=== PATIENT | female | born 1995 | race Caucasian/White ===

== ENCOUNTER 2025-04-03 08:31 | Inpatient (IN) | payer MEDICAID, SELFPAY ==
[2025-04-03] VITALS (28 sets, daily range): BP systolic 110–148; BP diastolic 45–94; PULSE 52–91; RESP 10–21; TEMP 36.3–36.7; O2SAT 96–98; BMI 39.2
--- NOTE | 2025-04-03 09:15 | PD.LDHP ---
Documentation for date of: 04/03/25 OB Labor/Induct. HPI History of Present Illness : 3 Para: 1 Term pregnancies: 1 pregnancies: 0 Living children: 1 History of Abortions: Spontaneous and Elective: 1 History of sections: No History of : No RADHA: 04/15/25 History of present illness: 29-year-old 3 para 1-0-1-1 intrauterine at 38 weeks and 2 days admitted for induction of labor for chronic hypertension on labetalol. Patient denies any leaking or bleeding. She reports occasional contractions. She reports normal movement. She denies any headache change in vision or right upper quadrant pain. US today shows Breech presenation. Comments: Past medical history: Chronic hypertension Past surgical history: D&C Allergies: No known drug allergies Medications: multivitamin 1 p.o. daily. Labetalol 100 mg 1 p.o. twice daily, aspirin 81 mg 1 p.o. daily History of Present Adequate Care: Yes Labs Labs: Positive: Rubella Titre, Negative: RPR, Hepatitis B, HIV, Chlamydia, Gonorrhea and Group Beta Strep and Unknown: Herpes Type 1, Herpes Type 2 and Covid-19 Review of Systems Review of Systems Narrative Review of Systems: Denies any chest pain palpitations cough fever shortness of breath or lower extremity pain. Past Medical History Surgical History SURGICAL: Negative Section Meds Home Medications and Allergies Home Medications ?Medication ?Instructions ?Recorded ?Confirmed ?Type prenat.vits,irene,flu-[id number] 1 tab PO QDAY 10/04/20 04/03/25 History hydrocodone 5 mg-acetaminophen 325 1 tab PO QID PRN Pain 08/15/21 08/15/21 History mg tablet aspirin 81 mg tablet,delayed 81 mg PO QDAY 04/03/25 04/03/25 History release labetalol 100 mg tablet 100 mg PO BID 04/03/25 04/03/25 History Allergies Allergy/AdvReac Type Severity Reaction Status Date / Time No Known Allergies Allergy Verified 04/03/25 09:14 OB Exam Routine HEENT Exam Comments: Within normal limits Routine Respiratory Exam Comments: Clear to auscultation bilaterally Routine Cardiovascular Exam Comments: Regular rate and rhythm Routine Abdominal Exam Comments: Gravid term size consistent with estimated weight 7.5 pounds Detailed Labor and Delivery Exam Comments: See RN notes Routine Extremities Exam Comments: Nontender or edema Routine Skin Exam Comments: No gross rashes or lesions Routine Neurological Exam Comments: No deficit OB Results Labs 04/03/25 09:00 04/03/25 09:00 Impressions Impression: IUP at 38 weeks and 2 days Chronic hypertension Breech Presenation Delivery Informed consent was obtained. The patient was made aware the risks, complications, alternatives and benefits of delivery and she agrees.
[2025-04-03 09:43] LABS: Basophils # (Auto) 0.0 Thou/mm3 (0.0-0.2); Basophils % (Auto) 0 % (0-2.5); Eosinophils # (Auto) 0.2 Thou/mm3 (0.0-0.5); Eosinophils % (Auto) 3 % (0-10); Hematocrit 34.0 % (36.0-46.0); Hemoglobin 11.5 g/dL (12.0-16.0); Immature Granulocytes Auto 0.03 Thou/mm3 (0.00-0.00); Lymphocytes # (Auto) 2.4 Thou/mm3 (1.0-4.8); Lymphocytes % (Auto) 28 % (10-50); Mean Corpuscular HGB Conc 33.8 g/dl (31.0-37.0); Mean Corpuscular Hemoglobin 26.1 pg (25.0-35.0); Mean Corpuscular Volume 77 fL (80-100); Monocytes # (Auto) 0.7 Thou/mm3 (0.0-0.8); Monocytes % (Auto) 8 % (0-12); Neutrophils # (Auto) 5.1 Thou/mm3 (1.8-7.7); Neutrophils % (Auto) 60 % (37-80); Nucleated Red Blood Cell # 0.00 Thou/mm3 (0.00-0.00); Nucleated Red Blood Cell % 0 /100 WBC (0); Platelet Count 197 Thou/mm3 (140-440); RDW Standard Deviation 40.3 fL (36.4-46.3); Red Blood Count 4.41 Miln/mm3 (4.00-5.20); White Blood Count 8.6 Thou/mm3 (3.6-11.0)
[2025-04-03 09:57] LABS: Collection Type, Urine Clean Catch
[2025-04-03 10:13] LABS: Syphilis Nonreactive (Nonreactive)
[2025-04-03 10:33] LABS: Creatinine,Random Urine 180 mg/dL (30-125); Protein Total, Random Urine 46 mg/dL (1-14)
--- NOTE | 2025-04-03 10:38 | XR_ITS ---
Examination: age limited TECHNIQUE: Limited transabdominal sonographic images pelvis April 03, 2025, 1128 hours INDICATIONS: Labor evaluation, and known weight FINDINGS: Viable intrauterine gestation breech presentation spine maternal left. Cardiac motion 135 BPM. Estimated weight 3301 g Estimated gestational age is 37 weeks 4 days IMPRESSION: Fibroids uterine gestation breech presentation
[2025-04-03 10:39] LABS: Bacteria,Urine 2+; Bilirubin,Urine Negative (Negative); Blood,Urine Negative (Negative); Clarity,Urine Turbid (Clear/Hazy); Color,Urine Yellow (Lt Yel-Yel); Glucose, Urine Negative (Negative); Ketones,Urine Negative (Negative); Leukocyte Esterase,Urine Negative (Negative); Nitrite,Urine Negative (Negative); PH,Urine 6.0 (5.0-7.0); Protein,Urine Trace (Neg - Trace); RBC,Urine 1 /hpf (0-3); Specific Gravity,Urine 1.023 (1.001-1.035); Squamous Epithelial Cell,Urine 32 /hpf (0-5); Urobilinogen,Urine 2.0 mg/dL (0.0-1.0); WBC,Urine 4 /hpf (0-5)
[2025-04-03] MEDS: RINGERS LACTATED 1000 ML 1,000 ML 100 ML IV ×2 (13:00→15:34)
[2025-04-03 13:17] LABS: Alanine Aminotransferase 19 U/L (10-49); Albumin, Serum 3.5 gm/dL (3.5-5.0); Albumin/Globulin Ratio 1.7 (1.2-2.2); Alkaline Phosphatase 166 U/L (46-116); Anion Gap 11 (7-16); Aspartate Amino Transferase 20 U/L (0-34); BUN/Creatinine Ratio 10 Ratio (12-20); Bilirubin,Total 0.3 mg/dL (0.3-1.2); Blood Urea Nitrogen 6 mg/dL (9-23); Calcium 9.3 mg/dL (8.3-10.6); Calcium (Corrected) 9.7 mg/dL (8.5-10.1); Carbon Dioxide 19.7 mMol/L (20.0-31.0); Chloride 110 mMol/L (98-107); Creatinine (Component) 0.6 mg/dL (0.6-1.3); Estimated Creatinine Clearance 145.1 mL/min (>60); Globulin 2.1 gm/dL (2.3-3.5); Glucose 120 mg/dL (74-106); Osmolality,Calculated 279 (275-295); Potassium 3.6 mMol/L (3.4-5.1); Sodium 141 mMol/L (136-145); Total Protein 5.6 gm/dL (5.7-8.2); eGFR > 60 See Note
[2025-04-03 13:26] LABS: Uric Acid 4.5 mg/dL (3.1-7.8)
[2025-04-03 13:39] LABS: Fibrinogen 419 mg/dL (175-375); INR 0.9 (0.9-1.3); Partial Thromboplastin Time 26.5 Seconds (22.0-36.0); Prothrombin Time 10.3 Seconds (9.0-12.2)
[2025-04-03] MEDS: METOCLOPRAMIDE INJ 5 MG/ML VIAL 2 ML 10 MG IVP (16:13)
[2025-04-03] MEDS: ceFAZolin/D5W 2 GM IV 2 GM/100 ML BAG IV (16:13)
[2025-04-03] MEDS: FAMOTIDINE INJ 10 MG/ML VIAL 2 ML 20 MG IV (16:13)
--- NOTE | 2025-04-03 16:18 | ESOP_ITS ---
Operative Note - PROFESSOR OF PHYSICS Procedure Date of procedure: 04/03/25 Procedure Performed: Primary Low Transverse Delivery Via Pfanensteil Skin Incision Indication: IUP 38w2d Chronic HTN Breech Presentation Pre-Op diagnosis: IUP 38w2d Chronic HTN Breech Presentation Post-Op diagnosis: IUP 38w2d Chronic HTN Breech Presentation Anesthesia type: Spinal Procedure description: After proper informed consent was obtained and the patient was made aware of the risks, complications, alternatives and benefits of the proposed procedure she was taken to the operating room where she underwent induction of spinal anesthesia. She was prepped and draped in the usual sterile fashion. A timeout was performed.? A Pfannenstiel skin incision was made with the scalpel and carried through to the underlying layer of fascia with the Bovie. The fascia was nicked in the midline incision and the incision was extended bilaterally with the Bovie. The inferior aspect of the fascial incision was grasped with Giovanni clamps elevated and the underlying rectus muscle dissected off with the Bovie. The superior aspect the fascial incision was grasped with Giovanni clamps elevated and the underlying rectus muscle dissected off with the Bovie. The rectus muscles were in the midline. The peritoneum was grasped between 2 Arriola clamps and entered sharply with the Metzenbaum scissors. The peritoneum was extended superiorly and inferiorly with good visualization of the bladder. The vesicouterine peritoneum was incised transversely and the bladder flap created digitally. A [place] blade was inserted. A low transverse incision was made in the uterus with a scapel and the incision was extended digitally. The 's feet, legs and hips were gently guided through the low transverse incision followed by the anterior and posterior shoulder then the after-coming head kept in the gently flexed position was delivered atraumatically. The mouth and nose were suctioned with the bulb suction. The cord was clamped after 30 second delayed cord clamping and the cord was cut.? The female infant was handed off to the waiting Pediatric staff, cord blood was collected for lab testing. The placenta was removed complete and intact. The uterus was exteriorized and cleared of all clots and debris. The uterine incision was closed with #1-0 chromic catgut suture in a running interlocking fashion. A second layer of the same suture was used to imbricate the first layer and obtain excellent hemostasis. The vesicouterine peritoneum was closed with 2-0 chromic catgut suture in a running fashion. The firm uterus was returned to the abdomen. The gutters were cleared of all clots and debris. The peritoneum was closed with 0 chromic catgut suture in running fashion. The rectus muscle was closed with 0 chromic catgut suture. The fascia was closed with 0 Vicryl beginning at each angle and ending in the center in a running fashion. The subcutaneous tissue was irrigated with warmed normal saline solution and found to be hemostatic. The subcutaneous tissue was closed with 2-0 chromic catgut suture in a running fashion. The skin was closed with 4-0 Monocryl. A Dermabond Prineo dressing was applied and a sterile pressure dressing was applied.? She tolerated the p rocedure well. Counts were correct. I discussed with the patient the nature of her condition, intraoperative findings and expectation for recovery all?questions answered. Specimen: none Estimated blood loss (ml): 500 Findings: Live infant APGARs 8/9 Footling breech presentation Clear amnitoic fluid Placenta removed complete and intact Anterior mid uterine intramural myoma 3 x 3 cm Normal appearing fallopian tubes and ovaires. 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
--- NOTE | 2025-04-03 16:18 | PD.LDDS ---
DS: Providers Provider Date of admission: 04/03/25 08:31 Primary care physician: Physician No Primary/Family Admitting Provider: Gabriel Virgen MD Attending Provider on Admission: Gabriel Virgen MD Attending Provider on DC: Gabriel Virgen MD Discharging Provider: Gabriel Virgen MD DS: Diagnosis Problem List Completed Was Problem List Reviewed/Reconciled?: Yes Summary/Hosp Course Brief History: 29-year-old 3 para 1-0-1-1 intrauterine at 38 weeks and 2 days admitted for induction of labor for chronic hypertension on labetalol. Patient denies any leaking or bleeding. She reports occasional contractions. She reports normal movement. She denies any headache change in vision or right upper quadrant pain. US today shows Breech presenation. Time Spent with Patient Time attestation: Total time spent providing and/or coordinating discharge services: Exam Vital Signs Pulse BP 72 131/88 H 04/03/25 15:46 04/03/25 15:46 Discharge Plan Plan Patient Disposition: HOME (Self Care) Patient condition on transfer: Stable Prescriptions/Referrals Prescriptions/Med Rec: New hydrocodone-acetaminophen 5-325 mg tablet 1 tab PO Q6H MDD 4 PRN (Reason: pain) Qty: 20 0RF ibuprofen 600 mg tablet 600 mg PO QID PRN (Reason: pain) Qty: 30 0RF Continued prenat.vits,irene,[id number] Tablet 1 tab PO QDAY Discontinued hydrocodone-acetaminophen 5-325 mg tablet 1 tab PO QID PRN (Reason: Pain) aspirin 81 mg tablet,delayed release (DR/EC) 81 mg PO QDAY Patient Comments: TAKE 1 TABLET BY MOUTH EVERY DAY labetalol 100 mg tablet 100 mg PO BID Patient Comments: TAKE 1 TABLET BY MOUTH TWICE A DAY Referrals: No Primary/Family,Physician [Primary Care Provider] - Patient/Caregiver Discharge Instructions Discharge Activity: activity as tolerated Other Discharge Activity Instructions:: Follow up office with Dr Virgen in 1 week. Stop taking Labetalol. Check BP twice daily and bring log to office visit in 1 week. Print Language: Persian Stand Alone Forms: Nydia Award Info., Patient Portal Info Letter Planned Discharge Date 04/05/25
--- NOTE | 2025-04-03 17:23 | OBDSUM_ITS ---
Data (Tay) Data Hx Section: No : 3 Term: 1 : 0 Livin Abortions: Spontaneous & Theraputic: 1 Delivery Data (Tay) Labor Data Induction/Augmentation Agent: None ROM date: 04/03/25 ROM time: 16:44 Amniotic membrane rupture type: Artificial Amniotic fluid description: Clear Delivery Data EDC: 04/15/25 EDC calculated by:: LMP/early US confirmation delivery date: 04/03/25 delivery time: 16:46 Gestational age (weeks): 38 Gestational age (days): 2 Placenta delivery date: 04/03/25 Placenta delivery time: 16:46 Delivered by: Gabriel Virgen Delivery nurse: Amarilis Pike RN Mixing Machine Tender Cork Rod at delivery: No Support person(s) at delivery: fob Delivery Method Delivery method: Low Transverse Presentation: Footling Anesthesia Type Anesthesia Type: None Anesthesia type: Spinal Placenta Placenta delivery description: Manual Removal Cord blood sent to lab: Yes cord blood collection: Cord Blood Type Episiotomy Episiotomy description: None EBL Estimated blood loss (ml): 500 Umbilical Cord cord description: 3 Vessels Complications Complications: None [place] Data (Tay) Data 's gender: Female Identification band number: [id number] weight (gms): 6 lb 6.647 oz Weight (pounds): 6 lbs and 6.6 ozs [place] length: 19.5 in 1 minute: 8 5 minutes: 9
[2025-04-03] MEDS: LABETALOL 100 MG TABLET PO (20:56)
[2025-04-03] MEDS: OXYTOCIN in NS 20 units 20 UNIT/1,000 ML BAG 125 UNIT IV (22:43)
[2025-04-03 23:48] LABS: Basophils # (Auto) 0.0 Thou/mm3 (0.0-0.2); Basophils % (Auto) 0 % (0-2.5); Eosinophils # (Auto) 0.0 Thou/mm3 (0.0-0.5); Eosinophils % (Auto) 0 % (0-10); Hematocrit 38.1 % (36.0-46.0); Hemoglobin 12.5 g/dL (12.0-16.0); Immature Granulocytes Auto 0.08 Thou/mm3 (0.00-0.00); Lymphocytes # (Auto) 1.3 Thou/mm3 (1.0-4.8); Lymphocytes % (Auto) 9 % (10-50); Mean Corpuscular HGB Conc 32.8 g/dl (31.0-37.0); Mean Corpuscular Hemoglobin 25.4 pg (25.0-35.0); Mean Corpuscular Volume 77 fL (80-100); Monocytes # (Auto) 0.3 Thou/mm3 (0.0-0.8); Monocytes % (Auto) 2 % (0-12); Neutrophils # (Auto) 13.4 Thou/mm3 (1.8-7.7); Neutrophils % (Auto) 89 % (37-80); Nucleated Red Blood Cell # 0.00 Thou/mm3 (0.00-0.00); Nucleated Red Blood Cell % 0 /100 WBC (0); Platelet Count 221 Thou/mm3 (140-440); RDW Standard Deviation 40.4 fL (36.4-46.3); Red Blood Count 4.93 Miln/mm3 (4.00-5.20); White Blood Count 15.1 Thou/mm3 (3.6-11.0)
[2025-04-04] VITALS (7 sets, daily range): BP systolic 116–131; BP diastolic 61–89; PULSE 60–97; RESP 18–19; TEMP 36.4–36.8; O2SAT 98–99
[2025-04-04] MEDS: HYDROcodone/APAP 5/325 TABLET 2 TAB PO (03:51)
[2025-04-04] MEDS: LABETALOL 100 MG TABLET PO ×2 (08:30→20:03)
[2025-04-04] MEDS: ENOXAPARIN SOD INJ 40 MG/0.4 ML SYRINGE SC (08:30)
[2025-04-04] MEDS: DOCUSATE SOD 100 MG CAPSULE PO (08:30)
[2025-04-04] MEDS: HYDROcodone/APAP 5/325 TABLET 1 TAB PO ×2 (09:57→20:03)
--- NOTE | 2025-04-04 10:49 | ESPR_ITS ---
Subjective Subjective Interval history: Delivery type: for breech, chronic hypertension on labetalol 100 twice daily Patient doing well this morning. No acute complaints. Ambulating, tolerating p.o. and voiding without difficulty. HTN/Pre-Eclampsia screen: No chest pain, shortness of breath, headache, visual changes, epigastric or right upper quadrant pain. Breast-feeding, lochia diminishing. Bowel: Flatus+/ BM+ Exam Vital Signs Temp Pulse Resp BP Pulse Ox O2 Del Method 98.0 F 60 18 130/86 H 99 Room Air 04/04/25 08:00 04/04/25 08:30 04/04/25 08:00 04/04/25 08:30 04/04/25 08:00 04/04/25 08:00 Constitutional Constitutional: no acute distress Routine HEENT Exam Head: Present normocephalic and atraumatic Eye: Present EOMI and PERRL ENT: Present mucous membranes moist Routine Neck Exam Neck: Present supple and trachea midline Routine Respiratory Exam Respiratory: Present chest non-tender, lungs clear, normal breath sounds and no resp distress Routine Cardiovascular Exam Cardiovascular: Present RRR Routine Abdominal Exam Abdominal: Present soft and normoactive bowel sounds Routine Extremities Exam Extremities: Present full ROM Routine Skin Exam Skin: Present intact, dry and warm Routine Neurological Exam Neurological: Present alert, oriented X3 and CN II-XII intact Routine Psychiatric Exam Psychiatric: Present normal affect and normal thought process Objective Labs 04/03/25 23:29 04/03/25 09:00 Labs: Laboratory Results - last 24 hr 04/03/25 04/03/25 09:00 23:29 WBC 15.1 H D RBC 4.93 Hgb 12.5 Hct 38.1 MCV 77 L MCH 25.4 MCHC 32.8 RDW Std Deviation 40.4 Plt Count 221 Neut % (Auto) 89 H Lymph % (Auto) 9 L [place] % (Auto) 2 Eos % (Auto) 0 Baso % (Auto) 0 Neut # (Auto) 13.4 H Lymph # (Auto) 1.3 [place] # (Auto) 0.3 Eos # (Auto) 0.0 Baso # (Auto) 0.0 Immature Gran # (Auto) 0.08 H Absolute Nucleated RBC 0.00 Immature Gran % 1 H Nucleated RBC % 0 PT 10.3 INR 0.9 APTT 26.5 Fibrinogen 419 H Sodium 141 Potassium 3.6 Chloride 110 H Carbon Dioxide 19.7 L Anion Gap 11 BUN 6 L Creatinine 0.6 Estim Creat Clear Calc 145.1 eGFR > 60 BUN/Creatinine Ratio 10 L Glucose 120 H Calculated Osmolality 279 Uric Acid 4.5 Calcium 9.3 Corrected Calcium 9.7 Total Bilirubin 0.3 AST 20 ALT 19 Alkaline Phosphatase 166 H Total Protein 5.6 L Albumin 3.5 Globulin 2.1 L Albumin/Globulin Ratio 1.7 Ur Collection Type Clean Catch Urine Color Yellow Urine Clarity Turbid A Urine pH 6.0 Ur Specific [place] 1.023 Urine Protein Trace Urine Glucose (UA) Negative Urine Ketones Negative Urine Blood Negative Urine Nitrite Negative Urine Bilirubin Negative Urine Urobilinogen (Auto) 2.0 Ur Leukocyte Esterase Negative Urine RBC 1 Urine WBC 4 Ur Squamous Epith Cells 32 H Urine Bacteria 2+ A Assessment & Plan Problem List (1) Double footling breech presentation: Status: Acute (2) Chronic hypertension: Status: Acute Assessment and plan: Continue labetalol 100 twice daily (3) Uterine myoma: Status: Acute (4) delivery delivered: Status: Acute Assessment and plan: 1. Continue routine /post-op care 2. Labs reviewed, cbc appropriate 3. Remove dressing/[place] 4. Encourage to ambulate, shower 5. Encourage PO intake, breast feeding Time Spent With Patient Time: Total time spent is greater than 50% in coordination of care (as documented) at patient's floor/unit and/or counseling patient:
[2025-04-04] MEDS: IBUPROFEN TAB 400 MG TABLET 800 MG PO (14:29)
[2025-04-05] MEDS: IBUPROFEN TAB 400 MG TABLET 800 MG PO ×2 (00:05→07:59)
[2025-04-05 04:00] VITALS: BP 114/70; PULSE 65; RESP 16; TEMP 36.7; O2SAT 99
[2025-04-05] MEDS: HYDROcodone/APAP 5/325 TABLET 1 TAB PO ×2 (04:03→11:34)
[2025-04-05 07:06] VITALS: BP 134/81; PULSE 78; RESP 16; TEMP 36.7; O2SAT 98
[2025-04-05 08:00] VITALS: BP 134/81; PULSE 78
[2025-04-05] MEDS: ENOXAPARIN SOD INJ 40 MG/0.4 ML SYRINGE SC (08:00)
[2025-04-05] MEDS: LABETALOL 100 MG TABLET PO (08:00)
[2025-04-05] MEDS: DOCUSATE SOD 100 MG CAPSULE PO (08:00)
[2025-04-05 09:09] LABS: Basophils # (Auto) 0.0 Thou/mm3 (0.0-0.2); Basophils % (Auto) 0 % (0-2.5); Eosinophils # (Auto) 0.1 Thou/mm3 (0.0-0.5); Eosinophils % (Auto) 1 % (0-10); Hematocrit 32.7 % (36.0-46.0); Hemoglobin 10.8 g/dL (12.0-16.0); Immature Granulocytes Auto 0.03 Thou/mm3 (0.00-0.00); Lymphocytes # (Auto) 2.6 Thou/mm3 (1.0-4.8); Lymphocytes % (Auto) 24 % (10-50); Mean Corpuscular HGB Conc 33.0 g/dl (31.0-37.0); Mean Corpuscular Hemoglobin 25.8 pg (25.0-35.0); Mean Corpuscular Volume 78 fL (80-100); Monocytes # (Auto) 0.9 Thou/mm3 (0.0-0.8); Monocytes % (Auto) 9 % (0-12); Neutrophils # (Auto) 7.1 Thou/mm3 (1.8-7.7); Neutrophils % (Auto) 66 % (37-80); Nucleated Red Blood Cell # 0.00 Thou/mm3 (0.00-0.00); Nucleated Red Blood Cell % 0 /100 WBC (0); Platelet Count 205 Thou/mm3 (140-440); RDW Standard Deviation 41.5 fL (36.4-46.3); Red Blood Count 4.19 Miln/mm3 (4.00-5.20); White Blood Count 10.8 Thou/mm3 (3.6-11.0)
--- NOTE | 2025-04-05 10:32 | CHAP ---
Patient was visited by a Spiritual Care Volunteer on 04/04/2025 between 0900 and 1140 and received comfort, encouragement and/or prayer.
[2025-04-05 11:28] VITALS: BP 119/79; PULSE 79; RESP 16; TEMP 36.8; O2SAT 98
--- NOTE | 2025-04-05 13:00 | ESPR_ITS ---
Subjective Subjective Interval history: The patient is a 29-year-old -0-1-2 postop day 2 status post primary C- section [address]gen for breech. She stated the baby was vertex at 36 weeks but flipped to breech. She is doing well today. She is ready to go home. Predelivery hemoglobin 11.5 postdelivery hemoglobin this morning is 10.8. Exam Vital Signs Temp Pulse Resp BP Pulse Ox O2 Del Method 98.3 F 79 16 119/79 98 Room Air 04/05/25 11:28 04/05/25 11:28 04/05/25 11:28 04/05/25 11:28 04/05/25 11:28 04/05/25 11:28 Narrative Exam Abdomen soft, nontender, incision is clean dry and intact fundus is firm at umbilicus Extremities show no significant edema or erythema. Objective Labs 04/05/25 08:55 04/03/25 09:00 Labs: Laboratory Results - last 24 hr 04/05/25 08:55 WBC 10.8 RBC 4.19 Hgb 10.8 L Hct 32.7 L MCV 78 L MCH 25.8 MCHC 33.0 RDW Std Deviation 41.5 Plt Count 205 Neut % (Auto) 66 Lymph % (Auto) 24 [place] % (Auto) 9 Eos % (Auto) 1 Baso % (Auto) 0 Neut # (Auto) 7.1 Lymph # (Auto) 2.6 [place] # (Auto) 0.9 H Eos # (Auto) 0.1 Baso # (Auto) 0.0 Immature Gran # (Auto) 0.03 H Absolute Nucleated RBC 0.00 Immature Gran % 0 Nucleated RBC % 0 Assessment & Plan Problem List (1) Chronic hypertension: Problem details: Patient's blood pressures are stable at this time. She has labetalol if she needs to take it. She will keep an eye on her blood pressures and follow-up with Dr. Virgen in 1 to 2 weeks. Status: Acute (2) delivery delivered: Problem details: Postop instructions given. No intercourse tampons douching x 6 weeks. No heavy lifting or exercise x 6 weeks. Status: Acute Time Spent With Patient Time: Total time spent is greater than 50% in coordination of care (as documented) at patient's floor/unit and/or counseling patient: Time with patient: less than 15 minutes
--- NOTE | 2025-04-05 13:03 | ESDS_ITS ---
DS: Providers Provider Date of admission: 04/03/25 08:31 Primary care physician: Physician No Primary/Family Admitting Provider: Gabriel Virgen MD Attending Provider on Admission: Cameron Love MD Consults: 04/03/25 17:45 Referral Routine Comment: Attending Provider on DC: Denisha [facility] MD ([facility]) Discharging Provider: Denisha Steven MD ([facility]) Anticipated date of discharge: 04/15/25 DS: Diagnosis Discharge Diagnosis (1) delivery delivered: Status: Acute Assessment & Plan: POD #2 status post primary patient doing well. Discharge instructions given. Follow-up with Dr Virgen in 2 weeks (2) Chronic hypertension: Status: Acute Assessment & Plan: Patient has prescription for labetalol she will check her blood pressures at home currently she is normotensive. Problem List Completed Was Problem List Reviewed/Reconciled?: Yes Summary/Hosp Course Brief History: 29-year-old 3 para 1-0-1-1 intrauterine at 38 weeks and 2 days admitted for induction of labor for chronic hypertension on labetalol. Patient denies any leaking or bleeding. She reports occasional contractions. She reports normal movement. She denies any headache change in vision or right upper quadrant pain. US today shows Breech presenation. Patient was admitted by Dr Virgen on 825. Please see history and physical for further details. Hospital course: Patient underwent an uncomplicated primary 825 about 1644. Please see op report for the details. Postoperative we the patient did quite well. By postoperative day #2 she was ambulating, voiding, passing flatus, tolerating a general diet. Her bleeding was minimal. Her vital signs were stable. Her predelivery hemoglobin is 11.5 postdelivery hemoglobin 10.8. She was discharged home postoperative day #2 in stable condition. Peripartum Data Delivery Method: Low Transverse Episiotomy Description: None Procedures: Procedures Operation Date: 04/03/25 14:15 Actual Procedure Side Surgeon p in OB Gabriel Virgen MD complications: none Status at Discharge Cognitive/behavioral status at discharge: Patient is alert and oriented x 3 in no apparent distress. Functional status at discharge: independent ambulation Overall status at discharge: patient is progressing back to baseline Time Spent with Patient Time attestation: Total time spent providing and/or coordinating discharge services: Time spent: Less than 30 minutes Specific discharge activities: No heavy lifting, intercourse tampons douching x 6 weeks. No exercise x 6 weeks. Call for fevers chills heavy vaginal bleeding or depression. Follow-up with Dr Virgen in 1 to 2 weeks Exam Vital Signs Temp Pulse Resp BP Pulse Ox O2 Del Method 98.3 F 79 16 119/79 98 Room Air 04/05/25 11:28 04/05/25 11:28 04/05/25 11:28 04/05/25 11:28 04/05/25 11:28 04/05/25 11:28 Narrative Exam Fundus firm nontender at umbilicus incision clean dry and intact extremities show no cyanosis clubbing or edema Discharge Plan Plan Patient Disposition: HOME (Self Care) Disposition Comment: Stable Patient condition on transfer: Stable Prescriptions/Referrals Prescriptions/Med Rec: New hydrocodone-acetaminophen 5-325 mg tablet 1 tab PO Q6H MDD 4 PRN (Reason: pain) Qty: 20 0RF ibuprofen 600 mg tablet 600 mg PO QID PRN (Reason: pain) Qty: 30 0RF Continued prenat.vits,irene,[id number] Tablet 1 tab PO QDAY Discontinued hydrocodone-acetaminophen 5-325 mg tablet 1 tab PO QID PRN (Reason: Pain) aspirin 81 mg tablet,delayed release (DR/EC) 81 mg PO QDAY Patient Comments: TAKE 1 TABLET BY MOUTH EVERY DAY labetalol 100 mg tablet 100 mg PO BID Patient Comments: TAKE 1 TABLET BY MOUTH TWICE A DAY Referrals: No Primary/Family,Physician [Primary Care Provider] - Patient/Caregiver Discharge Instructions Discharge Activity: activity as tolerated Other Discharge Activity Instructions:: Follow up office with Dr Virgen in 1 week. Stop taking Labetalol. Check BP twice daily and bring log to office visit in 1 week. Other Discharge Diet Instructions: General Education Materials: After Delivery Concerns, After a , Feel Healthy After, Blood Pressure Check Steps Print Language: Kiswahili Stand Alone Forms: Nydia Award Info., Patient Portal Info Letter Discharge Order Discharge Orders: Discharge (Routine); Ordered 04/05/25 Ordered By: Denisha Steven ([facility]) Planned Discharge Date 04/05/25
== END 2025-04-05 14:39 | disposition home or self-care (01) | DRG 540 ==
LOC: S4SX 08:33 → S4NX 16:41
PROVIDERS: Obstetrics & Gynecology; Admitting Provider Specialist; Visit Provider Obstetrics & Gynecology
PROC: 10D00Z1 Extraction of Products of Conception, Low, Open Approach (ICD-10-PCS; CPT 59514; principal; 2025-04-03 14:00)
DX: O16.4 Unspecified maternal hypertension, complicating childbirth (principal); Z37.0 Single live birth; Z3A.38 38 weeks gestation of pregnancy; O32.8XX0 Maternal care for other malpresentation of fetus, not applicable or unspecified; O34.13 Maternal care for benign tumor of corpus uteri, third trimester; D25.1 Intramural leiomyoma of uterus
CPT/HCPCS: 36415; 76815; 80053; 81001; 82570; 84156; 84550; 85025; 85384; 85610; 85730; 86780; 86850; 86900; 86901; 94762; A4314; A4649; J0689; J1100; J1650; J2274; J2405; J2590; J2765; J3010; J3490; J7120; S0191; A9270; J2270

== ENCOUNTER 2025-04-10 01:48 | Emergency (ER) | payer MEDICAID, SELFPAY ==
[2025-04-10] VITALS (7 sets, daily range): BP systolic 132–170; BP diastolic 80–102; PULSE 54–90; RESP 14–18; TEMP 36.7–36.8; O2SAT 96–99; BMI 39.2
--- NOTE | 2025-04-10 02:19 | PD.EDRME ---
Rapid Medical Screening Exam RME Arrival date/time: 04/10/25 01:48 This is a case of 39-year-old female who came in in the emergency room due to high blood pressure 172/117 at home patient had section last Thursday, April 03, 2025 with possible preeclampsia complication she was advised to monitor blood pressure and if the blood pressure is high they were advised to go to the emergency room patient currently complaint is dizziness but no headache no chest pain no palpitation no shortness of breath Chief Complaint: General Adult/Misc Complain Vital signs: Vital Signs Temperature 98.2 F 04/10/25 01:55 Pulse Rate 71 04/10/25 01:55 Respiratory Rate 18 04/10/25 01:55 Blood Pressure 153/96 H 04/10/25 01:55 Pulse Oximetry (%) 96 04/10/25 01:55 Oxygen Delivery Method Room Air 04/10/25 01:55
[2025-04-10 02:44] LABS: Collection Type, Urine Voided
[2025-04-10 02:53] LABS: Bilirubin,Urine Negative (Negative); Blood,Urine 2+ (Negative); Clarity,Urine Clear (Clear/Hazy); Color,Urine Lt-Yellow (Lt Yel-Yel); Glucose, Urine Negative (Negative); Ketones,Urine 1+ (Negative); Leukocyte Esterase,Urine Negative (Negative); Nitrite,Urine Negative (Negative); PH,Urine 6.0 (5.0-7.0); Protein,Urine Negative (Neg - Trace); RBC,Urine 6 /hpf (0-3); Specific Gravity,Urine 1.011 (1.001-1.035); Squamous Epithelial Cell,Urine 1 /hpf (0-5); Urobilinogen,Urine Negative mg/dL (0.0-1.0); WBC,Urine 2 /hpf (0-5)
--- NOTE | 2025-04-10 03:09 | EDNOTE_ITS ---
ED Recheck Abnl Lab Rx-RME/HPI General Chief Complaint: General Adult/Misc Complain Stated Complaint: BLOOD PRESSURE HIGH, RECENT DELIVERY ON 05/04 Arrival date/time: 04/10/25 01:48 RME / HPI RME / HPI narrative: 04/10/25 01:48 This is a case of 39-year-old female who came in in the emergency room due to high blood pressure 172/117 at home patient had section last Thursday, April 03, 2025 with possible preeclampsia complication she was advised to monitor blood pressure and if the blood pressure is high they were advised to go to the emergency room patient currently complaint is dizziness but no headache no chest pain no palpitation no shortness of breath DR. JONES MAIN ED EVALUATION: 29 y/o with recent Shx of and Hx of HTN and Anxiety presents to ED c/o elevated blood pressure in the 170's systolic x 1 day. Patient took Labetalol 100 mg at 8 PM last night. Patient began taking Labetalol during her second trimester and was advised to discontinue Labetalol at discharge following C- section 1 week ago. Patient is currently . Patient would like to restart Labetalol. She has an upcoming appointment with Dr. Virgen on 2024. No other concerns or complaints expressed at this time. complaint: other (Elevated blood pressure) Onset/Timin Symptoms since prior visit: improved Treatments prior to arrival: other medications (Labetalol) Related Data Home Medications ?Medication ?Instructions ?Recorded ?Confirmed prenat.vits,irene,[id number] 1 tab PO QDAY 10/04/20 04/03/25 Previous Rx's ?Medication ?Instructions ?Recorded hydrocodone 5 mg-acetaminophen 325 1 tab PO Q6H PRN pa in #20 tabs 04/03/25 mg tablet ibuprofen 600 mg tablet 600 mg PO QID PRN pain #30 t abs 04/03/25 labetalol 100 mg tablet 100 mg PO BID #60 tabs 04/10 Allergies Allergy/AdvReac Type Severity Reaction Status Date / Time No Known Allergies Allergy Verified 04/03/25 09:14 Review of Systems Review of Systems Systems Reviewed: All systems reviewed, normal except as documented Past Medical History Past Medical History CARDIAC: Positive Hypertension (CHTN) REPRODUCTIVE: Positive Previous Pregnancies (X2) PSYCHO/SOCIAL: Positive Anxiety Family History FAMILY HISTORY: Positive Family Psychiatric Problems (MOTHER (DEPRESSION,ANXIETY)), Family Respiratory Disorders (MOTHER (ASTHMA)) and Family Surgery (MOTHER) ED Exam Narrative Physical exam: Generally patient is alert in no obvious distress, eyes pupils are equal round reactive to light, heart regular rate and rhythm, lungs clear to auscultation equal bilaterally, abdomen soft bowel sounds present nondistended nontender, skin is warm pale and dry without rash, neurologic exam no focal motor or sensory deficits cranial nerves II through XII grossly intact without ataxia Course Quality Measures none Orders Category Date Time Status EKG (ED ONLY) *Do not use* NOW Care 04/10/25 02:12 Completed EKG (ED Only) Stat Exams 04/10/25 02:11 Ordered Urinalysis Stat Lab 04/10/25 02:34 Completed Labetalol IV [Trandate IV] Med 04/10/25 03:14 Discontinued 20 mg IVP X1 ONE Vital Signs Vital signs: Vital Signs Temperature 98.2 F 04/10/25 01:55 Pulse Rate 71 04/10/25 01:55 Respiratory Rate 18 04/10/25 01:55 Blood Pressure 153/96 H 04/10/25 01:55 Pulse Oximetry (%) 96 04/10/25 01:55 Oxygen Delivery Method Room Air 04/10/25 01:55 Recheck / Abnormal Lab / Rx MDM Narrative MDM Narrative:: Scribe Attestation: ICelina am scribing for and in the presence of Dr. Jones. Provider Notation: Although this document has been carefully reviewed, there may still be some phonetic and other typographical errors. These errors are purely grammatical due to imperfections in the software program and should not be construed in any way to compromise the substance of the patient's medical care during this visit. Patient's blood pressure upon arrival was 132/78 however that increased during the emergency room to 162/102. I discussed this case with the patient's [employer] physician, Dr. Virgen who agrees with treating her blood pressure at this time with labetalol 20 mg IV. Patient's urine was negative for protein. Patient has not been taking her labetalol 100 mg twice a day at home. She is to resume now. Dr. Virgen will see her tomorrow at 1 PM for remeasurement of blood pressure. After the 20 mg of labetalol the patient's blood pressure fell to 148/72. Patient will be discharged in stable condition. Patient data External records reviewed:: [facility] previous records (Reviewed prior ED records from 08/14/21. Patient was seen for Vaginal bleeding.) Clinical information provided by:: patient Social determinants that could affect healthcare access:: none Patient has the following chronic illnesses:: HTN, Anxiety How is presenting disease/condition affected by chronic disease/condition?: exacerbated by Evaluation data The following diagnostics were reviewed and interpreted by me:: lab results and EKG tracing(s) Lab and/or radiology exams considered but not ordered:: None Interpretation Summary: See MDM above. Medications / Prescriptions Medications or Prescriptions considered but not ordered:: None Medication administrations:: Medication Administration History Discontinued Medications Labetalol HCl (Labetalol Inj 5 Mg/Ml Vial 20 Ml) 20 mg IVP X1 ONE Stop: 04/10/25 03:15 Last Admin: 04/10/25 03:27 Dose: 20 mg Documented By: YOVANY See above if any. Consultations Consultation(s) initiated? (list below): Yes Consultation #1 (Physician, Specialty, Details): Dr. Virgen made aware of the patient?s HPI, PMHx, lab and/or radiology results. Discussed treatment plan. Time: 03:10 Diagnosis Recheck Differential Diagnosis: other (Anxiety Disorder, Panic Attack, Hypertensive urgency vs emergency) Most likely diagnosis given after review of the tests above:: None Admission Indicated Admission indicated?: not indicated Explain why admission is indicated or not indicated:: Patient does not meet admission criteria. Admission Request Was there a request for admission?: No Disposition Plan Disposition Plan: Discharge Discharge Attestation Discharge Attestation: The patient and all family members were given an opportunity to ask questions and understood the discharge instructions. Discharge instructions specifically effects, indications for sooner follow up or return to the emergency department, and the expected course of current diagnosis. Patient condition: Stable Discharge Plan Plan Patient Disposition: HOME (Self Care) Prescriptions/Referrals Prescriptions/Med Rec: New labetalol 100 mg tablet 100 mg PO BID Qty: 60 0RF No Action prenat.vits,irene,[id number] Tablet 1 tab PO QDAY hydrocodone-acetaminophen 5-325 mg tablet 1 tab PO Q6H MDD 4 PRN (Reason: pain) Qty: 20 0RF ibuprofen 600 mg tablet 600 mg PO QID PRN (Reason: pain) Qty: 30 0RF Referrals: Gabriel Virgen MD [Primary Care Provider] - In 1 week Problem List Clinical Impression: Hypertension Patient/Caregiver Discharge Instructions Education Materials: ED High Blood Pressure ... Additional Instructions: Take the labetalol as prescribed at 100 mg twice a day. Follow-up with your [employer] physician tomorrow April 11 at 1 PM. Print Language: Vietnamese Stand Alone Forms: Nydia Award Info., Patient Portal Info Letter
[2025-04-10] MEDS: LABETALOL INJ 5 MG/ML VIAL 20 ML 20 MG IVP (03:27)
== END 2025-04-10 04:39 | disposition home or self-care (01) ==
PROVIDERS: Nurse Practitioner Family; Emergency Provider Emergency Medicine; PCP Specialist
DX: I10 Essential (primary) hypertension (principal); I49.8 Other specified cardiac arrhythmias
CPT/HCPCS: 80053; 81001; 84484; 85025; 85379; 93005; 96374; 99283; J3490; J1920